=== PATIENT | male | born 1985 | race Caucasian/White ===

== ENCOUNTER 2016-08-12 10:27 | Emergency (ER) | payer MEDICAID ==
[~2016-08-12] VITALS: Ht 177.8 cm; Wt 64.0 kg
[2016-08-12 10:30] VITALS: BP 125/78
== END 2016-08-12 11:20 | disposition home or self-care (01) ==
LOC: ED 11:17
DX: L02.11 Cutaneous abscess of neck (principal); Z87.891 Personal history of nicotine dependence
CPT/HCPCS: 99283

== ENCOUNTER 2017-02-11 21:37 | Emergency (ER) | payer MEDICAID ==
[~2017-02-11] VITALS: Ht 182.9 cm; Wt 66.5 kg
[2017-02-11 21:46] VITALS: BP 122/75
== END 2017-02-11 23:40 | disposition home or self-care (01) ==
LOC: ED 23:15
DX: S83.91XA Sprain of unspecified site of right knee, initial encounter (principal); Q74.1 Congenital malformation of knee; X58.XXXA Exposure to other specified factors, initial encounter; Y93.89 Activity, other specified; Y92.89 Other specified places as the place of occurrence of the external cause; Y99.8 Other external cause status
CPT/HCPCS: 99284